=== PATIENT | female | born 1935 | race Caucasian/White ===

== ENCOUNTER 2017-07-22 07:06 | Observation (INO) | payer MEDICARE, BC ==
[2017-07-17 11:38] LABS: BASOPHILS % 0.5 % (0.0-1.0); EOSINOPHILS # (AUTO) 0.4 (0.0-0.4); EOSINOPHILS % 6.4 % (0.0-6.0); HEMATOCRIT 39.9 % (34.2-44.1); HEMOGLOBIN 13.2 g/dL (12.0-16.0); LYMPHOCYTES # (AUTO) 1.6 (1.0-3.2); LYMPHOCYTES % 28.4 % (18.0-39.1); MEAN CORPUSCULAR HGB CONC 33.1 g/dL (31-35); MEAN CORPUSCULAR VOLUME 87.7 fL (81-99); MONOCYTES # (AUTO) 0.5 (0.2-0.8); MONOCYTES % 9.5 % (4.4-11.3); NEUTROPHILS # (AUTO) 3.1 (2.1-6.9); PLATELET COUNT 263 x10e3/uL (140-360); RED BLOOD COUNT 4.55 x10e6/uL (3.6-5.1); RED CELL DISTRIBUTION WIDTH 12.4 % (11.7-14.4)
[2017-07-17 12:08] LABS: ANION GAP 11.7 mmol/L (8-16); BLOOD UREA NITROGEN 14 mg/dL (7-26); BUN/CREATININE RATIO 18 (6-25); CALCIUM 9.9 mg/dL (8.4-10.2); CARBON DIOXIDE 27 mmol/L (22-29); CHLORIDE 105 mmol/L (98-107); CREATININE, SERUM 0.79 mg/dL (0.57-1.11); EST GLOMERULAR FILTRATION RATE > 60 ML/MIN (60-); GLUCOSE 102 mg/dL (74-118); POTASSIUM 3.7 mmol/L (3.5-5.1); SODIUM 140 mmol/L (136-145)
--- NOTE | 2017-07-17 13:31 | Diagnostic Imaging Report ---
PROCEDURE: X-RAY CHEST, TWO VIEWS COMPARISON: Chest x-ray performed at [facility] 05/02/2011 INDICATIONS: PREOP FINDINGS: LUNGS: Diffusely hyperinflated with flattening of the diaphragms consistent with COPD. Mild reticulonodular opacities in the upper lung zones are stable. No soft tissue mass or consolidation. Pulmonary vascular markings are normal. PLEURA: No effusions or pneumothorax. Bilateral apical pleural-parenchymal thickening is stable. HEART \T\ MEDIASTINUM: The heart is within normal size-limits. BONES \T\ SOFT TISSUES: No acute findings. CONCLUSION: Stable chest. No active disease. Dictated by: Marii Wheeler M.D. on 07/17/2017 at 13:39 Electronically approved by: Marii Wheeler M.D. on 07/17/2017 at 13:39
[~2017-07-22] VITALS: Ht 160 cm; Wt 61.3 kg
[~2017-07-22 07:06] MED LIST: ASPIR 8181 MG PO; CENTRUM SILVER1 EAC3 PO; CO Q10200 MG PO; DIAZEPAM5 MG PO; DORZOLAMIDE HCL10 ML OP; DOXYCYCLINE HY100 MG PO; LATANOPROST2.5 ML OP; OMEPRAZOLE40 MG PO; OSTERA TABLET1 EACH PO; PRAVASTATIN SOD40 MG PO; SYNTHROID50 MCG PO; VIT C PO; ZETIA10 MG PO
[2017-07-22] MEDS ORDERED: LIDOCAINE JELLY 2% 10ML URO-JET ONE (09:52)
[2017-07-22] MEDS ORDERED: LIDOCAINE 1% W/EPINEPHRINE 20 ML VIAL ONE (09:52)
[2017-07-22] MEDS ORDERED: BUPIVACAINE 0.25% 30ML SDV INJ ONE (09:52)
[2017-07-22] MEDS ORDERED: GELATIN SPONGE SZ 100 ONE (09:53)
[2017-07-22] MEDS ORDERED: HYDROMORPHONE 1MG/1ML INJ IV PRN (11:30)
[2017-07-22] MEDS ORDERED: ACETAMINOPHEN 1000 MG/100 ML IV PRN (11:30)
[2017-07-22] MEDS ORDERED: ONDANSETRON HCL INJ 2 MG/ML VIAL IV PRN (11:30)
[2017-07-22] MEDS ORDERED: DORZOLAMIDE HCL (OPTH) 10 ML BOTTLE OP SCH (11:30)
[2017-07-22] MEDS ORDERED: HYDROMORPHONE 2MG/ML INJ IV PRN (11:45)
--- NOTE | 2017-07-22 12:03 | Operative Report ---
DATE OF PROCEDURE: July 22, 2017 PREOPERATIVE DIAGNOSIS: Rectal prolapse with thrombosed bleeding internal and external hemorrhoids. POSTOPERATIVE DIAGNOSIS: Rectal prolapse with thrombosed bleeding internal and external hemorrhoids. OPERATION PERFORMED: Repair of rectal prolapse with internal and external hemorrhoidectomy. BI DEVELOPER: PARRIS Gordon. ANESTHESIA: General. COMPLICATIONS: None. ESTIMATED BLOOD LOSS: 50 mL. DESCRIPTION OF PROCEDURE: With the patient lying in bed in the lithotomy position under good general anesthesia, the perineum was prepped with Betadine solution and draped in the usual manner. A standard anorectal block was then performed with 0.25% Marcaine and 1% lidocaine with epinephrine mixed in equal parts. Examination at this point revealed there was 2 huge prolapsing areas of the hemorrhoids at the 12 o'clock and 8 o'clock position. There was a smaller one at the 4 o'clock position. All 3 were done in a similar fashion. The hemorrhoids were totally prolapse. The base was ligated with an 0 chromic suture. The hemorrhoid was then excised with the internal, as well as the prolapsing component, totally and completely resected. The base of the hemorrhoid and colon and the anal verge were then oversewn with the same 0 chromic suture. The skin and mucosa were then reapproximated with interrupted sutures of 3-0 chromic. This was done in 3 separate groups with normal skin patches between each one. After this was done, hemostasis was ascertained. A Gelfoam pack impregnated with Xylocaine was placed. A dressing was applied. The sponge, lap and needle count was correct. Patient tolerated the procedure well, and returned to the recovery room in stable condition. Job#: [id number] MD
[2017-07-22] MEDS ORDERED: FENTANYL CITRATE/PF 100MCG/2 ML INJ ONE (14:11)
[2017-07-22 16:15] VITALS: BP 152/69
[2017-07-22] MEDS: SODIUM CHLORIDE 0.9% 1000ML 1,000 ML IV SCH ×2 (16:45→23:52)
[2017-07-22] MEDS: CEFOXITIN 1GM/ DEXTROSE 50ML 50 ML IV SCH ×2 (16:45→22:34)
[2017-07-22 16:48] VITALS: BP 152/69
[2017-07-22 16:49] VITALS: BP 152/69
[2017-07-22] MEDS ORDERED: PROPOFOL IV EMULSION 10 MG/ML 20 ML VIAL ONE (17:52)
[2017-07-22] MEDS ORDERED: ONDANSETRON HCL INJ 2 MG/ML VIAL ONE (17:52)
[2017-07-22] MEDS ORDERED: SEVOFLURANE INHAL SOLN 250 ML PEN BTL ONE (17:52)
[2017-07-22] MEDS ORDERED: LIDOCAINE HCL 2% JELLY 5 ML TUBE ONE (17:52)
[2017-07-22] MEDS ORDERED: DESFLURANE 240 ML BTL INH ONE (17:52)
[2017-07-22] MEDS ORDERED: DEXAMETHASONE SOD PHOS INJ 4 MG/ML VIAL ONE (17:52)
[2017-07-22] MEDS ORDERED: LIDOCAINE HCL 2% LOCAL INJ 5 ML SDV VIAL INJ ONE (17:52)
[2017-07-22] MEDS: HYDROCODONE/APAP 7.5MG-325MG 1 EA TAB PO PRN (20:54)
[2017-07-22 22:51] VITALS: BP 138/63
[2017-07-23] MEDS: SODIUM CHLORIDE 0.9% 1000ML 1,000 ML IV SCH ×2 (00:27→13:53)
[2017-07-23 00:44] VITALS: BP 104/57
[2017-07-23 04:06] VITALS: BP 98/55
[2017-07-23 08:16] VITALS: BP 154/66
[2017-07-23 08:17] VITALS: BP 154/66
[2017-07-23] MEDS: HYDROCODONE/APAP 7.5MG-325MG 1 EA TAB PO PRN ×2 (08:20→13:53)
[2017-07-23] MEDS ORDERED: LATANOPROST(OPTH) 2.5 ML BTL OP SCH (09:00)
[2017-07-23 11:45] VITALS: BP 115/55
[2017-07-23 15:50] VITALS: BP 152/64
[2017-07-23] MEDS ORDERED: ONDANSETRON HCL 4 MG ORAL DISINTEGRATING TAB PO ONE (18:15)
== END 2017-07-23 19:39 | disposition home or self-care (01) ==
LOC: OR 07:06 → IMCU 15:55
PROVIDERS: ADMIT Surgery; ATTEND Surgery
DX: K62.3 Rectal prolapse (principal); K64.5 Perianal venous thrombosis; K64.8 Other hemorrhoids
CPT/HCPCS: 36415; 46260; 71020; 80048; 85025; 88305; 93005; G0378 ×2; J1100; J2001 ×2; J2405; J7030; 88304

== ENCOUNTER 2018-11-15 23:24 | Emergency (ER) | payer MEDICARE, BC ==
[~2018-11-15] VITALS: Ht 160 cm; Wt 61.2 kg
--- OUTSIDE RECORDS SUMMARY | 2018-11-15 23:27 | XMS REPORT ---
Author Author [facility] Address Unknown Phone Unavailable Care Team Providers Care Support Architect Name Role Phone Naveen ROA Unavailable Unavailable Problems This patient has no known problems. Allergies, Adverse Reactions, Alerts This patient has no known allergies or adverse reactions. Medications This patient has no known medications. Results Test Description Test Time Test Comments Text Results Atomic Results Result Comments CHEST 2 VIEWS [facility] [address] [place] [address] Patient Name: LENA ARVIZU MR #: [id number] : 1935 Age/Sex: 81/F Req #: [id number] Adm Physician: Ordered by: PAT ROA MD Report #: [id number] Location: OR Room/Bed: Procedure: [id number] DX/CHEST 2 VIEWS Exam Date: 07/17/17 Exam Time: 1110 REPORT STATUS: Signed PROCEDURE: X-RAY CHEST, TWO VIEWS COMPARISON: Chest x-ray performed at [facility] 05/02/2011 INDICATIONS: PREOP FINDINGS: LUNGS: Diffusely hyperinflated with flattening of the diaphragms consistent with COPD. Mild reticulonodular opacities in the upper lung zones are stable. No soft tissue mass or consolidation. Pulmonary vascular markings are normal. PLEURA: No effusions or pneumothorax. Bilateral apical pleural-parenchymal thickening is stable. HEART T MEDIASTINUM: The heart is within normal size-limits. BONES T SOFT TISSUES: No acute findings. CONCLUSION: Stable chest. No active disease. Dictated by: Ynia Wheeler M.D. on 07/17/2017 at 13:39 Electronically approved by: Yina Wheeler M.D. on 07/17/2017 at 13 :39 Dictated By: YINA WHEELER MD [id number] Transcribed By: NICK on 07/17/17 [id number] COPY TO: PAT ROA MD
[2018-11-16] MEDS ORDERED: TETANUS/DIPHTHERIA TOX ADULT 0.5 ML SYR IM ONE
== END 2018-11-16 00:26 | disposition home or self-care (01) ==
LOC: FSED 23:24
DX: S50.811A Abrasion of right forearm, initial encounter (principal); W55.03XA Scratched by cat, initial encounter; Y92.008 Other place in unspecified non-institutional (private) residence as the place of occurrence of the external cause
CPT/HCPCS: 90471; 99283

== ENCOUNTER 2019-01-24 15:36 | Observation (INO) | payer BC, MEDICARE ==
[~2019-01-24] VITALS: Ht 160 cm; Wt 61.2 kg
[2019-01-24] MEDS ORDERED: SODIUM CHLORIDE 0.9% 1000ML 1,000 ML IV STA (16:31)
[2019-01-24] MEDS ORDERED: ACETAMINOPHEN 325 MG TAB PO ONE (16:45)
[2019-01-24 17:42] LABS: BASOPHILS % 0.1 % (0.0-1.0); HEMATOCRIT 33.1 % (34.2-44.1); HEMOGLOBIN 11.2 g/dL (12.0-16.0); LYMPHOCYTES # (AUTO) 0.9 (1.0-3.2); LYMPHOCYTES % 7.3 % (18.0-39.1); MEAN CORPUSCULAR HEMOGLOBIN 27.7 pg (28-32); MEAN CORPUSCULAR HGB CONC 33.8 g/dL (31-35); MEAN CORPUSCULAR VOLUME 81.7 fL (81-99); MONOCYTES # (AUTO) 1.1 (0.2-0.8); MONOCYTES % 8.8 % (4.4-11.3); NEUTROPHILS # (AUTO) 10.6 (2.1-6.9); NEUTROPHILS % 83.3 % (38.7-80.0); PLATELET COUNT 270 x10e3/uL (140-360); RED BLOOD COUNT 4.05 x10e6/uL (3.6-5.1); RED CELL DISTRIBUTION WIDTH 13.3 % (11.7-14.4)
--- NOTE | 2019-01-24 17:50 | NUR ---
straight cath inserted per md orders for ua pt has approx 300 cc urine output ua collected and sent to lab
[2019-01-24 17:57] LABS: ALANINE AMINOTRANSFERASE 11 IU/L (0-55); ALBUMIN 3.6 g/dL (3.5-5.0); ALKALINE PHOSPHATASE 92 IU/L (40-150); ANION GAP 14.9 mmol/L (8-16); BLOOD UREA NITROGEN 7 mg/dL (7-26); BUN/CREATININE RATIO 8 (6-25); CALCIUM 9.3 mg/dL (8.4-10.2); CARBON DIOXIDE 24 mmol/L (22-29); CHLORIDE 94 mmol/L (98-107); CREATINE KINASE 355 IU/L (29-168); CREATININE, SERUM 0.83 mg/dL (0.57-1.11); EST GLOMERULAR FILTRATION RATE > 60 ML/MIN (60-); GLUCOSE 129 mg/dL (74-118); POTASSIUM 3.9 mmol/L (3.5-5.1); SODIUM 129 mmol/L (136-145)
[2019-01-24 18:10] LABS: BILIRUBIN,URINE NEGATIVE (NEGATIVE); CLARITY,URINE SL CLOUDY (CLEAR); COLOR,URINE YELLOW (YELLOW); KETONES,URINE TRACE (NEGATIVE); LEUKOCYTE ESTERASE ,URINE NEGATIVE (NEGATIVE); NITRITE,URINE NEGATIVE (NEGATIVE); PROTEIN,URINE DIPSTICK NEGATIVE (NEGATIVE); URINE UROBILINOGEN 0.2 mg/dL (0.2 - 1)
[2019-01-24] MEDS ORDERED: MORPHINE SULFATE INJ 4 MG/ML INJ 1ML IV PRN (18:45)
[2019-01-24] MEDS ORDERED: ENALAPRILAT IV INJ 1.25 MG/ML VIAL IV PRN (18:45)
[2019-01-24] MEDS ORDERED: ACETAMINOPHEN 325 MG TAB PO PRN (18:45)
[2019-01-24] MEDS ORDERED: LACTULOSE SYRUP 20 GM/30 ML UDC PO PRN (18:45)
[2019-01-24] MEDS ORDERED: SODIUM CHLORIDE 0.9% 1000ML 1,000 ML IV SCH (19:30)
[2019-01-24] MEDS ORDERED: BISACODYL 10 MG SUPP PR PRN (19:30)
--- NOTE | 2019-01-24 19:42 | Diagnostic Imaging Report ---
Exam: Abdomen acute series with PA chest x-ray History: Severe constipation Findings: Nonobstructive bowel gas pattern with copious retained stool in the colon likely due to constipation. No free air is seen under the diaphragm. No suspicious calcifications are seen. Scattered phleboliths in the pelvis. Chronic appearing changes in the lungs. Impression: Findings most consistent with constipation. Signed by: Dr. Nestor Joseph M.D. on 01/24/2019 7:38 PM
--- NOTE | 2019-01-24 20:26 | History and Physical ---
CHIEF COMPLAINT: "I can't move my bowels today." HISTORY OF PRESENT ILLNESS: This is an 83-year-old white woman, presents to [facility] with a 1-week history of worsening constipation. The patient states in the past two days, it has been severe. The patient states she has actually had some liquidy stools in the past couple of days. In the emergency room, exam revealed an obvious high fecal impaction that was palpable on rectal exam by the emergency room physician. The patient was found to have BUN and creatinine of 7 and 0.83, respectively. The patient's sodium was 129 and potassium 3.9. The patient's white blood cell count was 12,600 and 83% segmenters and hemoglobin 12.2 g. Urinalysis was unremarkable. The patient states that 8 days ago she was started on hydrocodone because she had a dental extraction. The patient states she was not started on concomitant stool softener or laxative with the hydrocodone. The patient was admitted for further evaluation and treatment. REVIEW OF SYSTEMS: GENERAL: Weight is stable. No fever or chills. HEENT: No headaches. No vision changes. She did have dental extraction recently because of suspicious buccal mucosal lesions. CARDIOVASCULAR: No chest pain. GI: Complains of nausea and vomiting past week as well as severe constipation. In the past couple of days, she has had liquidy stool. : No UTI symptoms. NEUROMUSCULAR: No limb weakness or numbness. PAST MEDICAL HISTORY: 1. Hypertensive heart disease. 2. Hypothyroidism. 3. Hyperlipidemia. 4. Anxiety disorder. 5. Gingival squamous cell carcinoma/dysplasia. 6. Prediabetes and glaucoma. PAST SURGICAL HISTORY: 1. Repair of rectal prolapse with internal and external hemorrhoidectomy in July 2017. 2. Bilateral cataract surgery. 3. Bilateral lens implant. 4. Hysterectomy. FAMILY HISTORY: Mother lived to be 94 years old. The patient does not know her biological father's medical history. ALLERGIES: NO KNOWN DRUG ALLERGIES. SOCIAL HISTORY: She is , lives with her . No history of tobacco or alcohol use. She is currently retired. HOME MEDICATIONS: 1. Hydrocodone 10/325 one b.i.d. p.r.n. pain, prescribed on January 17, 2019. 2. Pravastatin 40 mg at bedtime. 3. Omeprazole 40 mg daily. 4. Synthroid 50 mcg daily. 5. Combigan one drop to both eyes twice a day. 6. Multivitamin daily. 7. Vitamin D3 1000 units daily. 8. Aspirin 81 mg daily. 9. Diazepam 5 mg daily p.r.n. anxiety. PHYSICAL EXAMINATION: GENERAL: She is awake, alert, and fluent, very pleasant. Her is at bedside. VITAL SIGNS: Height 5 feet 3 inches, weight 235 pounds, BMI 23. Blood pressure is 142/68, pulse 82, respiratory rate is 14, oxygen saturation 100% on room air, and temperature 100.2. INTEGUMENT: Skin is warm and dry. No pallor, jaundice, or diaphoresis. HEENT: Anicteric sclerae. Moist mucous membranes. The patient has evidence of recent dental extraction in her mandibular incisors. NECK: Supple. CARDIOVASCULAR: Tachycardic rate and regular rhythm with an S4 gallop. LUNGS: No rales, no rhonchi or wheezes. ABDOMEN: Soft. She has a distended abdomen. She has active bowel sounds in all four quadrants. Tenderness in the bilateral lower abdominal quadrant area. EXTREMITIES: No edema or deformity. NEUROLOGIC: Intact. ASSESSMENT: 1. Fecal impaction (opiates). 2. Hypertensive heart disease. PLAN: 1. We will stop all opiates. 2. Intravenous fluids. 3. Follow electrolytes. 4. Order bisacodyl suppository. 5. Order oral sennosides twice a day. 6. Order enema. 7. We will follow hemoglobin and hematocrit as well as white blood cell count. 8. We will start empiric intravenous antibiotics since the patient has white blood cell count and low-grade fever. I spent 45 minutes in the care of this patient. MD LYNNETTE Carr/WESTON /[id number] MTDD
[2019-01-24 20:45] VITALS: BP 163/70
[2019-01-24] MEDS: CEFTRIAXONE SOD 1 GM/NS 50 ML 50 ML IV SCH (20:52)
[2019-01-24] MEDS: SENNOSIDES 8.6 MG TAB PO SCH (21:34)
[2019-01-24] MEDS: METRONIDAZOLE 500MG/NS 100ML 100 ML IV SCH (22:06)
[2019-01-24 22:46] VITALS: BP 163/70
[2019-01-25] VITALS: BP 151/68
[2019-01-25] MEDS ORDERED: PRAVASTATIN SOD40 MG (00:48)
[2019-01-25] MEDS ORDERED: SYNTHROID50 MCG PO (00:48)
[2019-01-25] MEDS ORDERED: OMEPRAZOLE40 MG (00:48)
[2019-01-25] MEDS ORDERED: RHOPRESSA OU (00:56)
[2019-01-25] MEDS ORDERED: DIAZEPAM5 MG PO (00:56)
[2019-01-25] MEDS ORDERED: COMBIGAN EYE DRO5 ML (00:56)
[2019-01-25] MEDS ORDERED: COQ10 (00:57)
[2019-01-25] MEDS ORDERED: D3 (00:57)
[2019-01-25] MEDS ORDERED: ASPIRIN81 MG (00:57)
[2019-01-25] MEDS ORDERED: SILVER CENTRUM (00:57)
[2019-01-25] MEDS ORDERED: VIT C (00:57)
[2019-01-25 04:00] VITALS: BP 141/63
[2019-01-25] MEDS: METRONIDAZOLE 500MG/NS 100ML 100 ML IV SCH (04:33)
--- NOTE | 2019-01-25 04:33 | NUR ---
PATIENT WAS SITTING ON BED SIDE COMMODE, A VERY LARGE FORMED BOWEL MOVEMENT NOTED. PATIENT AMBULATES WELL. WILL CONTINUE TO MONITOR.
[2019-01-25 05:33] LABS: BASOPHILS % 0.1 % (0.0-1.0); EOSINOPHILS % 0.3 % (0.0-6.0); HEMATOCRIT 30.1 % (34.2-44.1); HEMOGLOBIN 9.9 g/dL (12.0-16.0); LYMPHOCYTES # (AUTO) 0.9 (1.0-3.2); LYMPHOCYTES % 8.5 % (18.0-39.1); MEAN CORPUSCULAR HEMOGLOBIN 27.7 pg (28-32); MEAN CORPUSCULAR HGB CONC 32.9 g/dL (31-35); MEAN CORPUSCULAR VOLUME 84.1 fL (81-99); MONOCYTES # (AUTO) 1.3 (0.2-0.8); MONOCYTES % 12.5 % (4.4-11.3); NEUTROPHILS # (AUTO) 8.2 (2.1-6.9); NEUTROPHILS % 78.3 % (38.7-80.0); PLATELET COUNT 235 x10e3/uL (140-360); RED BLOOD COUNT 3.58 x10e6/uL (3.6-5.1); RED CELL DISTRIBUTION WIDTH 13.6 % (11.7-14.4)
[2019-01-25 05:44] LABS: ANION GAP 12.8 mmol/L (8-16); BLOOD UREA NITROGEN 6 mg/dL (7-26); BUN/CREATININE RATIO 9 (6-25); CALCIUM 8.6 mg/dL (8.4-10.2); CARBON DIOXIDE 22 mmol/L (22-29); CHLORIDE 104 mmol/L (98-107); EST GLOMERULAR FILTRATION RATE > 60 ML/MIN (60-); GLUCOSE 131 mg/dL (74-118); POTASSIUM 3.8 mmol/L (3.5-5.1); SODIUM 135 mmol/L (136-145)
[2019-01-25 07:29] VITALS: BP 112/57
[2019-01-25 07:55] VITALS: BP 112/57
[2019-01-25] MEDS: SENNOSIDES 8.6 MG TAB PO SCH (08:17)
[2019-01-25] MEDS: CEFTRIAXONE SOD 1 GM/NS 50 ML 50 ML IV SCH (08:17)
--- NOTE | 2019-01-25 10:14 | Discharge Summary ---
ADMITTING DIAGNOSES: 1. Fecal impaction. 2. Opioid-induced constipation. 3. Hypertensive heart disease. DISCHARGE DIAGNOSES: 1. Fecal impaction, resolved. 2. Opiate-induced constipation, resolving. 3. Hypertensive heart disease. HOSPITAL COURSE: This is an 83-year-old white woman, who was admitted to [facility] with diagnosis of fecal impaction. The patient apparently experienced opiate-induced constipation. One week prior to this admission, the patient underwent multiple dental extractions that required postprocedure pain control with hydrocodone. The patient states that she did not take any laxatives or stool softeners with the pain medication. The patient states in the past opiates have caused her extreme constipation. In the emergency room, the patient was found to have white blood cell count of 12,600 with 83% segmented neutrophils. On day of discharge, white blood cell count was 10,000 with 78% segmented neutrophils. The patient also had a low-grade fever on admission of 100.2. On discharge, she was afebrile at 98.6. The patient was started on empiric intravenous antibiotics, namely ceftriaxone and metronidazole, which she tolerated well. She was also started on intravenous fluids. The patient underwent an acute abdominal series on admission, which revealed findings consistent with constipation, otherwise unremarkable. No evidence of obstruction was appreciated on plain film. The patient's brief hospitalization was unremarkable. Prior to discharge, she had acute bowel movement. She was very stable on discharge. DISCHARGE MEDICATIONS: 1. Sennosides 17.6 mg b.i.d. as needed for constipation (particularly if she is on opiates). 2. Metronidazole 500 mg p.o. t.i.d. for 5 days. 3. Pravastatin 40 mg at bedtime. 4. Omeprazole 40 mg daily. 5. Synthroid 50 mcg daily. 6. Combigan one drop to both eyes twice a day. 7. Multivitamin daily. 8. Vitamin D3 1000 units daily. 9. Aspirin 81 mg daily. 10. Diazepam 5 mg daily as needed for anxiety. FOLLOWUP INSTRUCTIONS: The patient is instructed to follow up with her primary care physician and also Dr. Kirt Oliva within 7 to 10 days. MD LYNNETTE Carr/WESTON /[id number]
[2019-01-25 11:14] VITALS: BP 117/56
[2019-01-25] MEDS ORDERED: METRONIDAZOLE 500MG/NS 100ML 100 ML IV SCH (12:00)
[2019-01-25] MEDS ORDERED: METRONIDAZOLE500 MG PO (13:01)
[2019-01-25] MEDS ORDERED: SENNOSIDES8.6 MG PO (13:02)
--- NOTE | 2019-01-25 13:40 | NUR ---
Pt out of room and no family at bedside. A card was left at the bedside to indicate a missed visit from a member of the Spiritual Care team and to inform the pt and family of the availability of a Diesel Engine Fitter 24 hours a day/7 days a week. A wool washer feeder will follow up as able.
--- NOTE | 2019-01-25 13:44 | NUR ---
patient discharged home, Alert with no distress, Dr Oliva had rounds, prescription given , patient had another bm , denies any pain or SOB, IV canula removed with tip intact, no ss of infiltration noted, transported via [facility] front lobby
[2019-01-25] MEDS ORDERED: ENOXAPARIN SOD INJ 40 MG/0.4 ML SYR SC SCH (17:00)
== END 2019-01-25 13:45 | disposition home or self-care (01) ==
LOC: ER 15:36 → ERHOLD 20:12 → IMCU 20:29
PROVIDERS: ADMIT Internal Medicine; ATTEND Internal Medicine
DX: K56.41 Fecal impaction (principal); T40.2X5A Adverse effect of other opioids, initial encounter; I11.9 Hypertensive heart disease without heart failure; E03.9 Hypothyroidism, unspecified; E78.5 Hyperlipidemia, unspecified; R73.03 Prediabetes; F41.9 Anxiety disorder, unspecified
CPT/HCPCS: 36415 ×2; 74022; 80048; 80053; 81001; 82550; 82553; 83605; 84484; 85025 ×2; 93005; 96360; 99284; G0378 ×2; J0696 ×2; J7030

== ENCOUNTER → 2020-05-02 | Day surgery (SDC) | payer BC, MEDICARE, OTHER ==
[2020-04-27 11:18] LABS: BASOPHILS % 0.4 % (0.0-1.0); EOSINOPHILS # (AUTO) 0.3 (0.0-0.4); EOSINOPHILS % 4.5 % (0.0-6.0); HEMATOCRIT 34.7 % (34.2-44.1); HEMOGLOBIN 10.7 g/dL (12.0-16.0); LYMPHOCYTES # (AUTO) 1.4 (1.0-3.2); LYMPHOCYTES % 21.1 % (18.0-39.1); MEAN CORPUSCULAR HGB CONC 30.8 g/dL (31-35); MONOCYTES # (AUTO) 0.6 (0.2-0.8); MONOCYTES % 8.8 % (4.4-11.3); NEUTROPHILS # (AUTO) 4.4 (2.1-6.9); NEUTROPHILS % 64.9 % (38.7-80.0); PLATELET COUNT 276 x10e3/uL (140-360); RED BLOOD COUNT 4.45 x10e6/uL (3.6-5.1); RED CELL DISTRIBUTION WIDTH 15.8 % (11.7-14.4)
[~2020-05-02] MED LIST changes: +ASPIRIN81 MG; +COMBIGAN EYE DRO5 ML; +COQ10; +D3; +FENTANYL CITRATE/PF 100MCG/2 ML INJ ONE; +HYOSCYAMINE 0.125 MG TAB ONE; +LUMIGAN2.5 M1 OU; +METRONIDAZOLE500 MG PO; +MIDAZOLAM HCL 2 MG/2 ML VIAL ONE; +OMEPRAZOLE40 MG; +ONDANSETRON HCL INJ 2MG/ML 2ML 2 MG/ML VIAL ONE; +PRAVASTATIN SOD40 MG; +PROPOFOL IV EMULSION 10 MG/ML 20 ML VIAL ONE; +RHOPRESSA OU; +RHOPRESSA2.5 ML OP; +SENNOSIDES8.6 MG PO; +SILVER CENTRUM; +VIT C
[2020-05-02 13:50] VITALS: BP 127/74
== END | disposition home or self-care (01) ==
LOC: OR 08:50
PROVIDERS: ATTEND Internal Medicine Gastroenterology
DX: K20.90 Esophagitis, unspecified without bleeding (principal); K29.70 Gastritis, unspecified, without bleeding; K31.7 Polyp of stomach and duodenum; K57.30 Diverticulosis of large intestine without perforation or abscess without bleeding; K63.5 Polyp of colon; K29.80 Duodenitis without bleeding; K29.50 Unspecified chronic gastritis without bleeding; D12.8 Benign neoplasm of rectum; Z86.010 Personal history of colon polyps; D64.9 Anemia, unspecified; Z88.8 Allergy status to other drugs, medicaments and biological substances; D64.89 Other specified anemias; R03.0 Elevated blood-pressure reading, without diagnosis of hypertension; E03.9 Hypothyroidism, unspecified; M41.9 Scoliosis, unspecified; E78.00 Pure hypercholesterolemia, unspecified; M19.90 Unspecified osteoarthritis, unspecified site; H40.9 Unspecified glaucoma; F41.9 Anxiety disorder, unspecified; K44.9 Diaphragmatic hernia without obstruction or gangrene; K64.8 Other hemorrhoids; Z85.819 Personal history of malignant neoplasm of unspecified site of lip, oral cavity, and pharynx; Z01.810 Encounter for preprocedural cardiovascular examination; Z01.812 Encounter for preprocedural laboratory examination; Z11.59 Encounter for screening for other viral diseases
CPT/HCPCS: 36415; 43239; 45384; 45385; 85025; 93005; J2405; J2704; U0002; 45378; J2250; J3010

== ENCOUNTER → 2020-06-19 | Outpatient (CLI) | payer BC, MEDICARE ==
[~2020-06-19] MED LIST changes: -FENTANYL CITRATE/PF 100MCG/2 ML INJ ONE; -HYOSCYAMINE 0.125 MG TAB ONE; -MIDAZOLAM HCL 2 MG/2 ML VIAL ONE; -ONDANSETRON HCL INJ 2MG/ML 2ML 2 MG/ML VIAL ONE; -PROPOFOL IV EMULSION 10 MG/ML 20 ML VIAL ONE
== END ==
LOC: DX 08:31
PROVIDERS: ATTEND Internal Medicine Gastroenterology
DX: D64.9 Anemia, unspecified (principal); Z20.828 Contact with and (suspected) exposure to other viral communicable diseases
CPT/HCPCS: 74250; U0002

== ENCOUNTER → 2021-09-03 | Day surgery (SDC) | payer BC, MEDICARE ==
[2021-08-29 10:09] LABS: BASOPHILS % 0.6 % (0.0-1.0); EOSINOPHILS # (AUTO) 0.4 (0.0-0.4); EOSINOPHILS % 7.8 % (0.0-6.0); HEMATOCRIT 37.6 % (34.2-44.1); HEMOGLOBIN 12.2 g/dL (12.0-16.0); LYMPHOCYTES # (AUTO) 1.7 (1.0-3.2); LYMPHOCYTES % 34.1 % (18.0-39.1); MEAN CORPUSCULAR HEMOGLOBIN 29.4 pg (28-32); MEAN CORPUSCULAR HGB CONC 32.4 g/dL (31-35); MEAN CORPUSCULAR VOLUME 90.6 fL (81-99); MONOCYTES # (AUTO) 0.6 (0.2-0.8); NEUTROPHILS # (AUTO) 2.4 (2.1-6.9); NEUTROPHILS % 46.3 % (38.7-80.0); PLATELET COUNT 239 x10e3/uL (140-360); RED BLOOD COUNT 4.15 x10e6/uL (3.6-5.1); RED CELL DISTRIBUTION WIDTH 12.3 % (11.7-14.4)
[2021-08-29 10:30] LABS: ALBUMIN 3.9 g/dL (3.5-5.0); ALBUMIN/GLOBULIN RATIO 1.1 (0.8-2.0); ANION GAP 14.4 mmol/L (8-16); CALCIUM 9.8 mg/dL (8.4-10.2); CREATININE, SERUM 0.99 mg/dL (0.57-1.11); POTASSIUM 4.4 mmol/L (3.5-5.1)
[2021-09-03] VITALS (7 sets, daily range): BP systolic 89–142; BP diastolic 48–71
[~2021-09-03] VITALS: Ht 162.6 cm; Wt 59.0 kg
[~2021-09-03] MED LIST changes: +ALPRAZOLAM 0.5 MG TAB ONE; +AZOR 5-20 MG T1 EACH PO; +DIPHENHYDRAMINE HCL 25 MG CAP ONE; +FENTANYL CITRATE/PF 100MCG/2 ML INJ ONE; +HEPARIN SOD (PORCINE) 1000 UNIT/ML 30ML ONE; +HEPARIN SOD/SOD CHLORIDE 2,000 ML ONE; +IOPAMIDOL 370 MG/ML 200 ML INFUS..BTL INJ ONE; +LIDOCAINE HCL 2% LOCAL 20 ML VIAL ONE; +MIDAZOLAM HCL 2 MG/2 ML VIAL ONE; +SODIUM CHLORIDE 0.9% 1000ML 1,000 ML ONE; +VERAPAMIL HCL 2.5 MG/ML 2 ML VIAL ONE
== END | disposition home or self-care (01) ==
LOC: CATH LAB 11:50
PROVIDERS: ATTEND Internal Medicine Interventional Cardiology
DX: I25.119 Atherosclerotic heart disease of native coronary artery with unspecified angina pectoris (principal); R94.39 Abnormal result of other cardiovascular function study; I10 Essential (primary) hypertension; Z01.812 Encounter for preprocedural laboratory examination; Z20.822 Contact with and (suspected) exposure to COVID-19; Z79.899 Other long term (current) drug therapy
CPT/HCPCS: 36415; 76937; 80053; 83880; 85025; 93458; C1887; C1894; J1644; J2001; J2250; J3010; J7030; Q9967; U0002; 99152

== ENCOUNTER 2024-03-12 03:21 | Emergency (ER) | payer MEDICARE ==
[~2024-03-12] VITALS: Ht 162.6 cm; Wt 63.5 kg
[~2024-03-12 03:21] MED LIST changes: -ALPRAZOLAM 0.5 MG TAB ONE; -DIPHENHYDRAMINE HCL 25 MG CAP ONE; -FENTANYL CITRATE/PF 100MCG/2 ML INJ ONE; -HEPARIN SOD (PORCINE) 1000 UNIT/ML 30ML ONE; -HEPARIN SOD/SOD CHLORIDE 2,000 ML ONE; +HYDRALAZINE HCL25 MG PO; -IOPAMIDOL 370 MG/ML 200 ML INFUS..BTL INJ ONE; -LIDOCAINE HCL 2% LOCAL 20 ML VIAL ONE; -MIDAZOLAM HCL 2 MG/2 ML VIAL ONE; -SODIUM CHLORIDE 0.9% 1000ML 1,000 ML ONE; -VERAPAMIL HCL 2.5 MG/ML 2 ML VIAL ONE
[2024-03-12 03:37] VITALS: TEMP 98.4
[2024-03-12 04:54] LABS: BASOPHILS % 0.5 % (0.0-1.0); EOSINOPHILS # (AUTO) 0.7 (0.0-0.4); HEMATOCRIT 29.7 % (34.2-44.1); HEMOGLOBIN 9.1 g/dL (12.0-16.0); LYMPHOCYTES # (AUTO) 1.3 (1.0-3.2); LYMPHOCYTES % 14.9 % (18.0-39.1); MEAN CORPUSCULAR HEMOGLOBIN 24.9 pg (28-32); MEAN CORPUSCULAR HGB CONC 30.6 g/dL (31-35); MEAN CORPUSCULAR VOLUME 81.4 fL (81-99); MONOCYTES % 11.8 % (4.4-11.3); NEUTROPHILS # (AUTO) 5.5 (2.1-6.9); NEUTROPHILS % 64.6 % (38.7-80.0); PLATELET COUNT 489 x10e3/uL (140-360); RED BLOOD COUNT 3.65 x10e6/uL (3.6-5.1); RED CELL DISTRIBUTION WIDTH 15.2 % (11.7-14.4); WHITE BLOOD COUNT 8.54 x10e3/uL (4.8-10.8)
[2024-03-12 05:16] LABS: ANION GAP 10.5 mmol/L (8-16); CREATININE, SERUM 0.7 mg/dL (0.6-1.2); POTASSIUM 4.5 mmol/L (3.0-5.1)
[2024-03-12 05:17] LABS: ALBUMIN 3.2 g/dL (3.3-5.5); ALBUMIN/GLOBULIN RATIO 0.8 (0.8-2.0); BILIRUBIN,TOTAL 0.5 mg/dL (0.2-1.6); CALCIUM 9.2 mg/dL (8.0-10.3); TOTAL PROTEIN 7.2 g/dL (6.4-8.1); TROPONIN I 0.004 ng/mL (0-0.300)
[2024-03-12 05:35] VITALS: PULSE 84; RESP 18; O2SAT 100
== END 2024-03-12 05:45 | disposition home or self-care (01) ==
LOC: ER 03:38
DX: R53.1 Weakness (principal); I10 Essential (primary) hypertension; E03.9 Hypothyroidism, unspecified; I25.10 Atherosclerotic heart disease of native coronary artery without angina pectoris; E78.5 Hyperlipidemia, unspecified; K21.9 Gastro-esophageal reflux disease without esophagitis; F41.9 Anxiety disorder, unspecified; H40.9 Unspecified glaucoma
CPT/HCPCS: 36415; 70450; 71045; 80053; 82550; 83880; 84484; 85025; 93005; 99283

== ENCOUNTER 2024-05-15 12:57 | Emergency (ER) | payer MEDICARE ==
[~2024-05-15] VITALS: Ht 162.6 cm; Wt 63.5 kg
[2024-05-15 14:43] LABS: BASOPHILS # (AUTO) 0.1 (0.0-0.1); BASOPHILS % 0.5 % (0.0-1.0); EOSINOPHILS # (AUTO) 0.6 (0.0-0.4); EOSINOPHILS % 6.6 % (0.0-6.0); HEMATOCRIT 29.3 % (34.2-44.1); HEMOGLOBIN 8.8 g/dL (12.0-16.0); LYMPHOCYTES # (AUTO) 1.5 (1.0-3.2); LYMPHOCYTES % 15.9 % (18.0-39.1); MEAN CORPUSCULAR HEMOGLOBIN 22.6 pg (28-32); MEAN CORPUSCULAR VOLUME 75.3 fL (81-99); MONOCYTES # (AUTO) 1.4 (0.2-0.8); MONOCYTES % 14.5 % (4.4-11.3); NEUTROPHILS # (AUTO) 5.8 (2.1-6.9); NEUTROPHILS % 62.2 % (38.7-80.0); PLATELET COUNT 501 x10e3/uL (140-360); RED BLOOD COUNT 3.89 x10e6/uL (3.6-5.1); RED CELL DISTRIBUTION WIDTH 16.2 % (11.7-14.4); WHITE BLOOD COUNT 9.31 x10e3/uL (4.8-10.8)
[2024-05-15 15:04] LABS: ANION GAP 15.3 mmol/L (8-16); CALCIUM 9.4 mg/dL (8.4-10.2); CREATININE, SERUM 0.83 mg/dL (0.57-1.11); POTASSIUM 4.3 mmol/L (3.5-5.1)
[2024-05-15 15:10] LABS: TROPONIN I 0.007 ng/mL (0-0.300)
[2024-05-15 15:27] LABS: BILIRUBIN,URINE NEGATIVE (NEGATIVE); CLARITY,URINE CLEAR (CLEAR); COLOR,URINE YELLOW (YELLOW); GLUCOSE, URINE NEGATIVE (NEGATIVE); KETONES,URINE NEGATIVE (NEGATIVE); LEUKOCYTE ESTERASE ,URINE NEGATIVE (NEGATIVE); NITRITE,URINE NEGATIVE (NEGATIVE); PH,URINE 7.5 (5 - 7); PROTEIN,URINE DIPSTICK NEGATIVE (NEGATIVE); URINE UROBILINOGEN 0.2 mg/dL (0.2 - 1)
[2024-05-15 15:31] LABS: BACTERIA,URINE FEW /HPF; EPITHELIAL CELLS,URINE FEW /LPF; RBC,URINE 0-5 /HPF (0-5); WBC,URINE (MAN) 0-5 /HPF (0-5)
[2024-05-15] MEDS ORDERED: IOPAMIDOL 370 MG/ML 100 ML INFUS..BTL INJ ONE (15:33)
[2024-05-15 17:40] VITALS: PULSE 88; RESP 16; TEMP 97.9; O2SAT 100
== END 2024-05-15 17:42 | disposition home or self-care (01) ==
LOC: ER 13:16
DX: R06.02 Shortness of breath (principal); F03.90 Unspecified dementia, unspecified severity, without behavioral disturbance, psychotic disturbance, mood disturbance, and anxiety; I10 Essential (primary) hypertension; E78.5 Hyperlipidemia, unspecified; E03.9 Hypothyroidism, unspecified; I25.10 Atherosclerotic heart disease of native coronary artery without angina pectoris; K21.9 Gastro-esophageal reflux disease without esophagitis; H40.9 Unspecified glaucoma; F41.9 Anxiety disorder, unspecified
CPT/HCPCS: 36415; 71260; 80048; 81001; 82550; 84484; 85025; 85379; 93005; 99284; Q9967

== ENCOUNTER 2025-03-06 22:24 | Emergency (ER) | payer MEDICARE ==
[~2025-03-06] VITALS: Ht 162.6 cm; Wt 63.5 kg
[2025-03-06 23:21] VITALS: PULSE 51; RESP 16; TEMP 97.9
[2025-03-07] MEDS: TETANUS/DIPHTHERIA TOX ADULT 0.5 ML SYR IM ONE (00:58)
[2025-03-07] MEDS: ACETAMINOPHEN 325 MG TAB PO ONE (02:54)
[2025-03-07 02:55] VITALS: BP 151/62; PULSE 52; RESP 16; O2SAT 100
== END 2025-03-07 02:49 | disposition home or self-care (01) ==
LOC: ER 23:23
DX: S60.221A Contusion of right hand, initial encounter (principal); S61.411A Laceration without foreign body of right hand, initial encounter; W01.0XXA Fall on same level from slipping, tripping and stumbling without subsequent striking against object, initial encounter; Y92.015 Private garage of single-family (private) house as the place of occurrence of the external cause; I10 Essential (primary) hypertension; E03.9 Hypothyroidism, unspecified; I25.10 Atherosclerotic heart disease of native coronary artery without angina pectoris; K21.9 Gastro-esophageal reflux disease without esophagitis; E78.5 Hyperlipidemia, unspecified; F41.9 Anxiety disorder, unspecified; H40.9 Unspecified glaucoma; F03.90 Unspecified dementia, unspecified severity, without behavioral disturbance, psychotic disturbance, mood disturbance, and anxiety
CPT/HCPCS: 90714; 99283